=== PATIENT | male | born 1945 | race African-American/Black ===

== ENCOUNTER 2017-05-02 08:44 | Emergency (ER) | payer SELFPAY ==
[~2017-05-02] VITALS: Ht 162.6 cm; Wt 62.3 kg
[2017-05-02 09:54] LABS: EOSINOPHIL COUNT 0.1 K/uL (0-0.3); HEMATOCRIT 44.6 % (38.0-50.0); IMMATURE GRANULOCYTE (%) 0.3 % (0.0-0.7); INSTRUMENT ABS NEUTROPHIL CT 1.4 K/uL; LYMPHOCYTE COUNT 1.7 K/uL (1.0-2.8); MCHC 32.3 G/DL (30.0-36.0); MCV 80.5 FL (86-99); MEAN PLAT.VOLUME 9.3 uM^3 (9.0-12.4); MONOCYTE COUNT 0.3 K/uL (0-0.8); NEUTROPHIL (%) 39.7 % (45-76); NEUTROPHIL COUNT 1.4 K/uL (1.8-6.4); PLATELET COUNT 198 K/uL (156-360); RBC DIS.WIDTH-CV 13.2 % (11.8-14.6); RBC DIS.WIDTH-SD 38.3 % (39-53); RED BLOOD COUNT 5.54 M/uL (4.00-5.50); WHITE BLOOD COUNT 3.5 K/uL (4.1-10.2)
[2017-05-02 10:01] LABS: ADD MIUA? NO; BILIRUBIN NEGATIVE; BLOOD NEGATIVE; COLOR STRAW ((YELLOW)); GLUCOSE (STRIP) NEGATIVE; KETONES NEGATIVE; LEUKOCYTES NEGATIVE; NITRITE NEGATIVE; PROTEIN (STRIP) NEGATIVE; UCUL ADDED? NO; UROBILINOGEN 0.2 MG/DL (0.2-1.0)
[2017-05-02 10:03] LABS: CHLORIDE 104 mEq/L (99-109); POTASSIUM 3.7 mEq/L (3.7-5.4); SODIUM 140 mEq/L (136-147)
[2017-05-02 10:05] LABS: GLUCOSE 89 mg/dL (70-99)
[2017-05-02 10:06] LABS: ANION GAP 8 MEQ/L (2-14)
[2017-05-02 10:07] LABS: TOTAL BILIRUBIN 0.6 mg/dL (0.0-1.0)
[2017-05-02 10:09] LABS: ALKALINE PHOSPHATASE 78 IU/L (3-129); GFR ESTIMATE (CALCULATED) > 59 mL/min/
[2017-05-02 10:10] LABS: UREA NITROGEN (BUN) 9 mg/dL (9-23)
[2017-05-02 10:12] LABS: LIPASE 20 U/L (1.0-51.0)
[2017-05-02] MEDS ORDERED: NORVASC2.5 MG PO (12:17)
[2017-05-02] MEDS ORDERED: NORCO 5/3251 TABLET PO (12:17)
[2017-05-02 12:47] VITALS: BP 184/102
== END 2017-05-02 12:49 | disposition home or self-care (01) ==
LOC: EME 08:44
PROVIDERS: Emergency Medicine
DX: K40.90 Unilateral inguinal hernia, without obstruction or gangrene, not specified as recurrent (principal); R11.2 Nausea with vomiting, unspecified; R91.1 Solitary pulmonary nodule
CPT/HCPCS: 74177; 80053; 81003; 83690; 85025; 99281; 99284; J7030